=== PATIENT | male | born 1990 | race Caucasian/White ===

== ENCOUNTER 2016-10-03 18:31 | Emergency (ER) | payer SELFPAY ==
[~2016-10-03] VITALS: Ht 180.3 cm; Wt 74.8 kg
[2016-10-03 19:50] LABS: BASOPHILS % (AUTO) 1.4 % (0.0-2.0); EOSINOPHILS % (AUTO) 0.7 % (0.0-3.0); LYMPHOCYTES % (AUTO) 31.4 % (20.0-45.0); MEAN CORPUSCULAR VOLUME 89 FL (80-99); MEAN PLATELET VOLUME 6.7 FL (6.5-10.1); MONOCYTES % (AUTO) 7.9 % (1.0-10.0); NEUTROPHILS % (AUTO) 58.6 % (45.0-75.0); PLATELET COUNT 296 K/UL (150-450); RED BLOOD COUNT 5.31 M/UL (4.70-6.10); RED CELL DISTRIBUTION WIDTH 11.2 % (11.6-14.8); WHITE BLOOD COUNT 8.5 K/UL (4.8-10.8)
[2016-10-03 20:09] LABS: ACETAMINOPHEN < 10 ug/mL (10-30); ALANINE AMINOTRANSFERASE 25 U/L (3-41); ALBUMIN/GLOBULIN RATIO 1.7 (1.0-2.7); ALCOHOL < 10 mg/dL; ANION GAP 17 (5-15); ASPARTATE AMINO TRANSFERASE 27 U/L (5-40); CALCIUM 10.3 mg/dL (8.6-10.2); CARBON DIOXIDE 23 mEQ/L (20-30); CHLORIDE 102 mEQ/L (98-107); GLOMERULAR FILTRATION RATE > 60 mL/min (>60); HEMOLYSIS 9; POTASSIUM 3.9 mEQ/L (3.4-4.9); SODIUM 142 mEQ/L (135-145); TOTAL PROTEIN 7.2 g/dL (6.6-8.7)
[2016-10-03 20:22] LABS: BILIRUBIN,DIRECT 0.2 mg/dL (0.1-0.3)
[2016-10-03] MEDS ORDERED: LORazepam Inj 2mg/ml 1ml ONE (21:18)
[2016-10-03] MEDS ORDERED: LORazepam Inj 2mg/ml 1ml IM ONE (21:30)
--- NOTE | 2016-10-03 21:30 | Emergency Room Report ---
History of Present Illness General Chief Complaint: Behavioral Complaint Present Illness HPI 27-year-old male presents emergency department brought by PD for running in the streets naked, inappropriate behavior and speaking erratically. Patient is poor historian and uncooperative with questions. Denies drug use or psychiatric history. HPI and ROS are limited due to pt. cooperation and poor historian. Pt denies SI or HI. (Roshni Gooden P.AAspen) Allergies: Coded Allergies: UNABLE TO ASSESS (Unverified , 10/03/16) Pt unable to answer. Patient History Past Medical History: see triage record Past Surgical History: unable to obtain Pertinent Family History: unable to obtain (Roshni Gooden) Nursing Documentation-[facility] Past Medical History Deferred: Pt Cognitively Impaired Past Medical History: Deferred (Roshni Gooden) Review of Systems All Other Systems: limited - poor historian, and pt. cooperation is limited. (Roshni Gooden.Ben) Physical Exam Vital Signs Date Time Temp Pulse Resp B/P Pulse Ox O2 Delivery O2 Flow Rate FiO2 10/03/16 18:32 98.2 89 16 145/76 99 Room Air Sp02 EP Interpretation: reviewed, normal General Appearance: no apparent distress, alert, GCS 15, non-toxic Head: normocephalic, atraumatic Eyes: bilateral eye EOMI, bilateral eye PERRL, bilateral eye normal inspection ENT: hearing grossly normal, normal pharynx, no angioedema, normal voice Neck: full range of motion, supple/symm/no masses Respiratory: chest non-tender, lungs clear, normal breath sounds, speaking full sentences - sentences do not make sense. Cardiovascular #1: regular rate, rhythm, no edema, normal capillary refill Gastrointestinal: normal bowel sounds, non tender, soft, no guarding, no rebound Rectal: deferred Musculoskeletal: back normal, gait/station normal, normal range of motion, non- tender Neurologic: alert, oriented x3, responsive, motor strength/tone normal, sensory intact, normal gait, speech normal - fast rate, however clear pronounciation of words. Psychiatric: no suicidal/homicidal ideation, anxious, other - speaking erratically, nonsense, clear pronunciation, rapid rate, multiple changes to voice exhibited. also wispers when alone. Skin: normal color, no rash, warm/dry, well hydrated Lymphatic: no adenopathy (Roshni Gooden) Medical Decision Making PA Attestation Dr. Lopez is my supervising Physician whom patient management has been discussed with. (Roshni Gooden) Diagnostic Impression: Primary Impression: Behavioral change Additional Impression: Psychosis Qualified Codes: F23 - Brief psychotic disorder ER Course 27-year-old male presents emergency department brought by PD for running in the streets naked, inappropriate behavior and speaking erratically. Patient is poor historian and uncooperative with questions. Denies drug use or psychiatric history. HPI and ROS are limited due to pt. cooperation and poor historian . Pt is hyperactive, and has a very anxious and restless affect. Pt speaks erratically sentences with no thought process. clear annunciation. Ddx considered but are not limited to OD, SI/HI, psychosis, UTI, intoxication Vital signs: are WNL, pt. is afebrile. H&PE are most consistent with behavioral/mental health issue possible substance use. no evidence of trauma ORDERS: -CBC: unremarkable -CMP:unremarkalbe -UA: negative for infection see results attached. -UDS: positive for amphetamines and Marijuana -Psych panel ordered: see results attached - no acute intoxication. -Serum ETOH: <10 /unremarkable ED INTERVENTIONS: - 2mg Ativan IM DISPOSITION: lab results continue to be pending, to determine substance abuse vs psych. may require psych evaluation. pt. being signed out to Dr. Dent. Labs Test 10/03/16 19:30 10/03/16 21:10 White Blood Count 8.5 K/UL (4.8-10.8) Red Blood Count 5.31 M/UL (4.70-6.10) Hemoglobin 16.5 G/DL (14.2-18.0) Hematocrit 47.1 % (42.0-52.0) Mean Corpuscular Volume 89 FL (80-99) Mean Corpuscular Hemoglobin 31.0 PG (27.0-31.0) Mean Corpuscular Hemoglobin Concent 35.0 G/DL (32.0-36.0) Red Cell Distribution Width 11.2 % (11.6-14.8) Platelet Count 296 K/UL (150-450) Mean Platelet Volume 6.7 FL (6.5-10.1) Neutrophils (%) (Auto) 58.6 % (45.0-75.0) Lymphocytes (%) (Auto) 31.4 % (20.0-45.0) Monocytes (%) (Auto) 7.9 % (1.0-10.0) Eosinophils (%) (Auto) 0.7 % (0.0-3.0) Basophils (%) (Auto) 1.4 % (0.0-2.0) Sodium Level 142 mEQ/L (135-145) Potassium Level 3.9 mEQ/L (3.4-4.9) Chloride Level 102 mEQ/L (98-107) Carbon Dioxide Level 23 mEQ/L (20-30) Anion Gap 17 (5-15) Blood Urea Nitrogen 15 mg/dL (7-23) Creatinine 1.0 mg/dL (0.7-1.2) Estimat Glomerular Filtration Rate > 60 mL/min (>60) Glucose Level 95 mg/dL (74-106) Calcium Level 10.3 mg/dL (8.6-10.2) Total Bilirubin 1.8 mg/dL (0.0-1.2) Direct Bilirubin 0.2 mg/dL (0.1-0.3) Aspartate Amino Transf (AST/SGOT) 27 U/L (5-40) Alanine Aminotransferase (ALT/SGPT) 25 U/L (3-41) Alkaline Phosphatase 55 U/L (40-129) Total Protein 7.2 g/dL (6.6-8.7) Albumin 4.6 g/dL (3.5-5.2) Globulin 2.6 g/dL Albumin/Globulin Ratio 1.7 (1.0-2.7) Salicylates Level < 1 mg/dL (10-30) Acetaminophen Level < 10 ug/mL (10-30) Serum Alcohol < 10 mg/dL (Roshni Gooden P.A.) ER Course Patient slept through the night. He is now awake and able to give his name and date of . Not suicidal homicidal. We'll discharge home. (BEATRICE DENT M.D.) Last Vital Signs Date Time Temp Pulse Resp B/P Pulse Ox O2 Delivery O2 Flow Rate FiO2 10/03/16 18:32 98.2 89 16 145/76 99 Room Air (Roshni oGoden P.A.) Status: improved (BEATRICE DENT M.D.) Disposition: HOME, SELF-CARE Condition: Stable Signed Out To: Dr. Dent (Roshni Gooden) Referrals: NOT CHOSEN IPA/,REFERRING (PCP) Patient Instructions: Self-Destructive Behavior Additional Instructions: Followup with your DrAspen in 7 days. Return if worse. Roshni Gooden Oct 03, 2016 21:29 BEATRICE DENT M.D. Oct 04, 2016 05:40
[2016-10-03] MEDS ORDERED: Haloperidol 5mg/ml Inj IM ONE (22:15)
[2016-10-03 23:14] VITALS: BP 147/76
[2016-10-04 01:10] VITALS: BP 135/72
[2016-10-04 04:18] VITALS: BP 119/76
[2016-10-04 07:12] VITALS: BP 114/69
[2016-10-04 08:10] VITALS: BP 132/82
== END 2016-10-04 08:45 | disposition home or self-care (01) ==
LOC: EDBD 18:46 → EMR 18:46
DX: F91.9 Conduct disorder, unspecified (principal); F29 Unspecified psychosis not due to a substance or known physiological condition
CPT/HCPCS: 36415; 80053; 80300; 82248; 85025; 96372; 99284; G0480; J1630; 80329